=== PATIENT | female | born 1960 | race Caucasian/White ===

== ENCOUNTER 2017-12-21 10:31 | Observation (INO) | payer OTHER ==
[2017-12-21] MEDS ORDERED: OXYCODONE/APAP 5/325 TAB PO ONE (10:53)
[2017-12-21] MEDS ORDERED: DIAZEPAM 5 MG TAB PO ONE (10:53)
--- NOTE | 2017-12-21 10:59 | EDPHY ---
H & P Time Seen by Provider: 12/21/17 10:43 HPI/ROS: CHIEF COMPLAINT: Neck pain and hand weakness HISTORY OF PRESENT ILLNESS: Patient is had previous cervical spine surgeries including last 01/26/[address] Wei. she presents with 3 weeks of increasing neck pain radiating to her head. It spreads bilaterally to her shoulders right greater than left and more into her right arm. She presents today because the pain is not controlled by ibuprofen associated with bilateral weakened transportation maintenance specialist strength today. She contacted Glenn Sales from Neurosurgery who requested she come to the ER for evaluation. She says bilateral hand weakness is new. Not associated with incontinence or leg symptoms. REVIEW OF SYSTEMS: Eye: no change in vision ENT: no sore throat Cardiac: no chest pain or syncope Pulmonary: no cough or SOB Abdomen: no vomiting, diarrhea, abdominal pain Musculoskeletal: HPI Skin: no rash Neuro: HPI Constitutional: no fever : no urinary symptoms A comprehensive 10 point review of systems is otherwise negative aside from elements mentioned in the history of present illness. PAST MEDICAL HISTORY: Previous cervical fusions Social history: General Appearance: Alert and conversant, cooperative. Eyes: No scleral icterus. ENT, Mouth: Normal mucous membranes. Respiratory: Normal respiratory effort, breath sounds equal, lungs are clear to auscultation. Cardiovascular: Regular rate and rhythm. Gastrointestinal: Abdomen is soft and non tender. Neurological: Alert and face symmetric. Strength normal in both deltoids biceps triceps and wrist extensors. She has weak pinch strength with index and thumb as well as weak transportation maintenance specialist. These are bilateral. Toes downgoing bilaterally. Patellar reflexes 1 to 2+ and symmetric. Skin: Warm and dry, no rashes. Musculoskeletal: No peripheral edema. Psychiatric: Not agitated. Emergency Department course/MDM: Oral Percocet x1, oral Valium 5 mg for MRI. MRI of cervical and thoracic spine discussed and consented, ordered. 1216: MRI reviewed with Dr. Macias shows C4-5 disc herniation with cord compression as well as T1-2 and T7-8 disease. Discussed with Glenn Sales for Dr. Quiñones at this time; here to see patient 1231. 1248: admit V. Smoking Status: Never smoked Constitutional: Initial Vital Signs Temperature (C) 37 C 12/21/17 10:34 Heart Rate 80 12/21/17 10:34 Respiratory Rate 16 12/21/17 10:34 Blood Pressure 139/104 H 12/21/17 10:34 O2 Sat (%) 93 12/21/17 10:34 O2 Delivery Mode Room Air Allergies/Adverse Reactions: erythromycin base [Erythromycin Base] Allergy (Unknown, Verified 12/21/17 10:33) morphine Allergy (Unknown, Verified 12/21/17 10:33) Home Medications: Medication Instructions Recorded NK [No Known Home Meds] 12/21/17 Medical Decision Making - Diagnostics Imaging Results: Imaging Impressions Cervical Spine MRI 12/21/17 10:53 Impression: 1. C4-C5: Severe central canal stenosis with cord compression deformity secondary to moderate degenerative disk disease with dorsal disk/osteophyte complex. 2. T1-T2: Moderate to severe central canal stenosis secondary to left paramedian disk herniation, extrusion, resulting in cord compression and deformity. 3. Prior anterior cervical diskectomy and fusion from C5-C6 through C7-T1 without significant stenosis. 4.Please see above findings at specific disk levels. Findings and recommendations discussed with emergency department physician, Anam Liu MD at 1210 hours on December 21, 2017. Final report concurs with initial preliminary interpretation. Thoracic Spine MRI 12/21/17 10:53 Impression: 1. Multilevel moderate degenerative disk disease, worse at T1-T2, T10-T11, and T12-T12 with T1-T2 left paramedian disk herniation, T10-T11 right dorsal disk/ osteophyte complex, and T11-T12 central disk/osteophyte complex, resulting in moderate central canal stenosis with cord compression, as described above. 2. No cord edema or myelomalacia. 3. Please see above findings at specific levels. Findings and recommendations discussed with emergency department physician, Anam Liu MD at 1210 hours on December 21, 2017. Final report concurs with initial preliminary interpretation. Imaging: Discussed imaging studies w/ in home sales consultant Radiologist, I viewed and interpreted images myself Differential Diagnosis: Differential considered including but not limited to central disc herniation, spinal cord compression, peripheral neuropathy, myelopathic problem. - Data Points Medications Given: Discontinued Medications Diazepam (Valium) 5 mg PO EDNOW ONE Stop: 12/21/17 10:54 Last Admin: 12/21/17 11:00 Dose: 5 mg Oxycodone/Acetaminophen (Percocet 5/325) 1 tab PO EDNOW ONE Stop: 12/21/17 10:54 Last Admin: 12/21/17 10:59 Dose: 1 tab Departure - Departure Disposition: [facility] Clinical Impression: Cervical stenosis of spine Condition: Good
[2017-12-21] MEDS ORDERED: ONDANSETRON 4 MG/2 ML VIAL IVP PRN (13:00)
--- NOTE | 2017-12-21 13:21 | GHP ---
[f rep st] PREOP HISTORY AND PHYSICAL DATE OF ADMISSION: 12/21/2017 CHIEF COMPLAINT: Hand weakness. HISTORY OF PRESENT ILLNESS: Ms. Ridley is a 57-year-old female who has undergone 2 previous anterior cervical diskectomies and fusions of the left performed by Dr. Nielsen in January of 2013. For the last 3-4 weeks, she has been having neck pain, shoulder discomfort with right arm pain. Over the last 2 days , she has noticed this progressive loss of engineering manager strength with weakness. She has difficulty holding objects and she feels that her hands are both weak. She denies any upper extremity paresthesias, issues with fine motor tasks, ataxia, or bowel or bladder problems. She has been using Flexeril, with no improvement of her pain. PAST MEDICAL HISTORY: Possible reactive airway disease. CURRENT MEDICATIONS: albuterol inhaler. ALLERGIES: erythromycin, which causes nausea. FAMILY HISTORY: The patient has no family history of spine problems. SOCIAL HISTORY: Patient is and has 5 children. She denies smoking, drinking, or drug use. REVIEW OF SYSTEMS: Negative. PHYSICAL EXAM: GENERAL: The patient is a 57-year-old female lying in bed, in no apparent distress. HEAD, EYES, EARS, NOSE, AND THROAT: Negative for drainage. EXTREMITIES: [place], warm and dry. NEUROLOGICAL: The patient is awake, alert, and oriented x4. Pupils equal, round, reactive to light. Extraocular motions are intact. There is no evidence of facial droop. Tongue and uvula are midline. Spinal area accessory muscles are intact. Her motor strength is 5/5 with the exception of her bilateral engineering manager and intrinsics, which are 3-/5. Her sensation is grossly intact to light touch in her arms and legs. Deep tendon reflexes are 3+/4 in the bilateral biceps, triceps, brachioradialis, 4/4 in the bilateral patellar and 3+/4 in the bilateral Achilles. There is positive bilateral Ebenezer's with 2-3 beats of clonus bilaterally. DIAGNOSTIC STUDIES: An MRI of the thoracic spine from [facility] on 12/21/2017 shows preservation of the sagittal alignment. There is no evidence of significant stenosis. MRI of the cervical spine from [facility] on 12/21/2017 shows preservation of the sagittal alignment. There are postoperative changes from a previous C5 to T1 anterior cervical diskectomy and fusion. At C4-5, there is a broad-based disk herniation with ligamentum hypertrophy, which produces moderate to severe central canal stenosis. IMPRESSION: This is a 57-year-old female with a history of neck pain and progressive myelopathic symptoms that is likely related to her severe cervical stenosis at C4-5. She is neurologically stable. PLAN: All the above discussed in detail with the patient and her . This patient was seen and examined by Dr. Quiñones on the general care floor. At this point in time, Ms. Ridley will be admitted to the hospital. We will move forward with a plate removal and C4-5 anterior cervical diskectomy and arthrodesis in the next day or 2. She understands the risks of surgery include , but are not limited to, bleeding, infection, neurological injury, cerebrovascular injury, spinal fluid leak, and the risk of ongoing symptoms postoperatively. We will also have her work with Physical Therapy and Occupational Therapy preoperatively. STAFF ADDENDUM: I have seen and evaluated the patient and I agree with the above note. /[id number]/MODL MTDD
[2017-12-21] MEDS: oxyCODONE IR 5 MG TAB PO PRN ×2 (14:49→20:28)
[2017-12-21] MEDS: ACETAMINOPHEN 325 MG TAB PO PRN ×2 (15:47→20:27)
[2017-12-21] MEDS: METHOCARBAMOL 750 MG TAB PO PRN (20:27)
[2017-12-22] MEDS: oxyCODONE IR 5 MG TAB PO PRN ×2 (02:41→10:31)
[2017-12-22] MEDS: ACETAMINOPHEN 325 MG TAB PO PRN ×2 (10:31→17:44)
--- NOTE | 2017-12-22 11:39 | ASMTCMCOM ---
CM Note CM Note Notes: Chart reviewed and met with pt to review dc planning. She is for elective surgey tomorrow. She has good support at home.presurgical therapy clears patient for home independently at this time. No needs identified. CM available should needs arise. Date Signed: 12/22/2017 11:38 AM Electronically Signed By:Tiarra Zarco RN
--- NOTE | 2017-12-22 12:03 | NEUSURGPN ---
Assessment/Plan: 57 yr old with history of C5-T1 fusion, has progressive hand weakness and stenosis at C4-5 Plan: -Patient has continued bilateral hand weakness -Will plan for ACDF C4-[address] Nielsen tomorrow amGlenn will be by to consent the patient today -PT/OT -Discussed MRI findings with patient -Patient discussed with Dr Wei -Please call neurosurgery with any questions/concerns Subjective: Patient continues to have hand weakness Objective: AxO x3 PERRL 5/5 BUE aside from 3/5 bilateral integration project manager and intrinsics 5/5 BLE Neuro Check Frequency: per routine Urinary Catheter in Place: No - Physician Discussed Patient with : [facility] Physical Exam - Vitals, I&O, Labs I and O 12/21/17 12/22/17 12/23/17 05:59 05:59 05:59 Intake Total 500 500 Balance 500 500 Weight 65.771 kg Intake: Oral (ml) 500 500 IV Infused (ml) 0 Other: Number of Voids 2 Toilet 1 Vital Signs Temp Pulse Resp BP Pulse Ox 36.6 C 62 16 97/60 L 98 12/22/17 08:00 12/22/17 08:00 12/22/17 08:00 12/22/17 08:00 12/22/17 08:00 ICD10 Worksheet Patient Problems: Problems Problem Status Onset Cervical stenosis of spine Acute
[2017-12-22] MEDS ORDERED: ceFAZolin 2 GM/SWFI 2 GM/20 ML SYR IVP ONE (13:23)
[2017-12-22] MEDS ORDERED: GABAPENTIN 300 MG CAP PO ONE (13:23)
[2017-12-22] MEDS: ONDANSETRON DISINTEGRATING 4 MG TAB PO PRN (16:52)
[2017-12-22] MEDS: METHOCARBAMOL 750 MG TAB PO PRN (19:59)
[2017-12-23] MEDS ORDERED: LR 1,000 ML IV ONE (06:17)
[2017-12-23] MEDS ORDERED: ceFAZolin 2 GM/SWFI 20 ML SYR IVP ONE (06:30)
[2017-12-23] MEDS ORDERED: GABAPENTIN 300 MG CAP ONE (06:30)
[2017-12-23] MEDS: ONDANSETRON DISINTEGRATING 4 MG TAB PO PRN ×2 (06:40→20:17)
[2017-12-23] MEDS: oxyCODONE IR 5 MG TAB PO PRN ×3 (06:40→16:30)
[2017-12-23] MEDS: ACETAMINOPHEN 325 MG TAB PO PRN (06:41)
[2017-12-23] MEDS ORDERED: THROMBIN (BOVINE) 5,000 UNIT VIAL TP ONE (06:57)
[2017-12-23] MEDS ORDERED: BUPIVACAINE 0.25% 30 ML SDV ONE (06:57)
[2017-12-23] MEDS ORDERED: CHLORHEXIDINE GLUC HIBICLENS 118 ML BTL TP ONE (06:57)
[2017-12-23] MEDS ORDERED: BACITRACIN 50,000 UNITS/10 ML SYR IRR ONE ×2 (06:58→08:55)
[2017-12-23] MEDS ORDERED: OXYCODONE/APAP 5/325 TAB PO PRN (07:01)
[2017-12-23] MEDS ORDERED: ACETAMINOPHEN 500 MG TAB PO PRN (07:01)
[2017-12-23] MEDS ORDERED: ONDANSETRON 4 MG/2 ML VIAL IVP PRN (07:01)
[2017-12-23] MEDS ORDERED: NALOXONE HCL 0.4 MG/ML INJ IVP PRN (07:01)
[2017-12-23] MEDS ORDERED: LR 500 ML IV PRN (07:01)
[2017-12-23] MEDS ORDERED: ALBUTEROL 3 ML DEYVIAL IH PRN (07:01)
[2017-12-23] MEDS ORDERED: MIDAZOLAM 2 MG/2 ML VIAL IVP ONE (07:01)
--- NOTE | 2017-12-23 07:03 | PDANEPAE ---
ANE History of Present Illness Cervical Fusion ANE Past Medical History - Pulmonary History Hx Oxygen in Use at Home: No Hx Sleep Apnea: No Sleep Apnea Screening Result - Last Documented: Negative - Endocrine History Hx Diabetes: No - Chronic Pain History Chronic Pain: Yes ANE Review of Systems Review of Systems: ANE Patient History - Allergies Allergies/Adverse Reactions: erythromycin base [Erythromycin Base] Allergy (Unknown, Verified 12/21/17 10:33) morphine Allergy (Unknown, Verified 12/21/17 10:33) - Home Medications Home Medications: NK [No Known Home Meds] 12/21/17 [Last Taken Unknown] - NPO status NPO Since - Liquids (Date): 12/23/17 NPO Since - Liquids (Time): 00:00 NPO Since - Solids (Date): 12/22/17 NPO Since - Solids (Time): 20:00 - Smoking Hx Smoking Status: Never smoked ANE Labs/Vital Signs - Vital Signs Blood Pressure: 125/82 Heart Rate: 58 Respiratory Rate: 20 O2 Sat (%): 95 Height: 160.02 cm Weight: 65.771 kg ANE Physical Exam - Airway Neck exam: FROM Mallampati Score: Class 2 - Pulmonary Pulmonary: clear to auscultation - Cardiovascular Cardiovascular: regular rate and rhythym - ASA Status ASA Status: II ANE Anesthesia Plan Anesthesia Plan: general endotracheal anesthesia
[2017-12-23] MEDS ORDERED: MIDAZOLAM 2 MG/2 ML VIAL ONE (07:06)
[2017-12-23] MEDS ORDERED: PROPOFOL 200 MG/20 ML VIAL ONE (07:12)
[2017-12-23] MEDS ORDERED: fentaNYL 100 MCG/2 ML INJ ONE ×2 (07:12→09:31)
[2017-12-23] MEDS ORDERED: PROPOFOL/EMULSION 500 MG/50 ML BOTTLE IV ONE ×2 (07:31)
[2017-12-23] MEDS ORDERED: REMIFENTANIL HCL 1 MG VIAL ONE ×2 (07:37)
[2017-12-23] MEDS ORDERED: DEXAMETHASONE 4 MG/ML VIAL ONE ×2 (09:05)
[2017-12-23] MEDS ORDERED: ONDANSETRON 4 MG/2 ML VIAL ONE (09:05)
[2017-12-23] MEDS ORDERED: LACTULOSE 20 GM/30 ML UDCUP PO PRN (09:14)
[2017-12-23] MEDS ORDERED: BISACODYL 10 MG SUPP PR PRN (09:14)
[2017-12-23] MEDS ORDERED: diphenhydrAMINE 25 MG CAP PO PRN (09:14)
[2017-12-23] MEDS ORDERED: MAGNESIUM HYDROXIDE 30 ML UDCUP PO PRN (09:14)
[2017-12-23] MEDS ORDERED: NS W/ 20 KCl/L 1,000 ML IV SCH (09:15)
--- NOTE | 2017-12-23 09:19 | SOAPPROG ---
SOAP Progress Note Assessment/Plan: Assessment: 57 yo F sp C5-7 plate removal, C4/5 ACDF Plan: stable Raquel to fit hard collar MRI to evaluate for residual stenosis may dc home later today if MRI ok please call with neuro changes 12/23/17 09:18 Subjective: + neck pain, no arm pain. Objective: Vital Signs Temp Pulse Resp BP Pulse Ox 36.6 C 58 L 20 125/82 H 95 12/23/17 06:44 12/23/17 07:03 12/23/17 07:03 12/23/17 07:03 12/23/17 07:03 12/22/17 12/23/17 12/24/17 05:59 05:59 05:59 Intake Total 500 2200 Output Total 1 Balance 500 2199 somnolent PERRL, EOMI AYSHA x 4 3/5 clinic lead bilaterally + light touch C/D/I ICD10 Worksheet Patient Problems: Problems Problem Status Onset Cervical stenosis of spine Acute
[2017-12-23] MEDS ORDERED: HYDROmorphONE/DILAUDID 1 MG/ML INJ ONE (09:31)
[2017-12-23] MEDS: fentaNYL 100 MCG/2 ML INJ IVP PRN ×2 (09:33→09:41)
[2017-12-23] MEDS: HYDROmorphONE/DILAUDID 1 MG/ML INJ IVP PRN ×4 (09:34→15:03)
--- NOTE | 2017-12-23 09:41 | POSTANESTH ---
Post Anesthetic Evaluation Cardiovascular Status: Normal, Stable Respiratory Status: Normal, Stable Level of Consciousness/Mental Status: Alert and Oriented Pain Control: Adequate, Prn Tx Ordered Nausea/Vomiting Control: Adequate, Prn Tx Ordered Complications Possibly Related to Anesthesia: None Noted
[2017-12-23] MEDS: METHOCARBAMOL 750 MG TAB PO PRN (11:02)
[2017-12-23] MEDS: ceFAZolin 2 GM/SWFI 2 GM/20 ML SYR IVP SCH ×2 (13:18→21:55)
[2017-12-23] MEDS ORDERED: ceFAZolin 2 GM/DEXTROSE 100 ML IV SCH (14:00)
[2017-12-23] MEDS ORDERED: ceFAZolin 2 GM/SWFI 2 GM/20 ML SYR IVP SCH (14:00)
[2017-12-23] MEDS: POLYETHYLENE GLYCOL 3350 17 GM PKT PO SCH ×2 (16:21→21:55)
[2017-12-23 19:57] VITALS: RESP 16
[2017-12-23] MEDS: FAMOTIDINE 20 MG TAB PO SCH (20:16)
[2017-12-24] MEDS: ACETAMINOPHEN 325 MG TAB PO PRN ×2 (00:31→07:52)
[2017-12-24] MEDS: oxyCODONE IR 5 MG TAB PO PRN ×3 (00:32→12:05)
[2017-12-24 07:28] VITALS: PULSE 68; TEMP 98.2; O2SAT 95
[2017-12-24 07:46] VITALS: BP 107/55
[2017-12-24] MEDS: FAMOTIDINE 20 MG TAB PO SCH (07:47)
[2017-12-24] MEDS: POLYETHYLENE GLYCOL 3350 17 GM PKT PO SCH (07:53)
--- NOTE | 2017-12-24 08:05 | SOAPPROG ---
[facility] Progress Note Assessment/Plan: Assessment: 57 yo F POD #1 C5-7 plate removal, C4/5 ACDF Plan: stable dc home today hard collar at all times for 4 weeks MRI shows good decompression at C4/5 likely dc TONY today please call with neuro changes seen by Dr Wei 12/23/17 09:18 12/24/17 08:03 Subjective: + neck pain ,hands are stronger, no paresthesias. Objective: Vital Signs Temp Pulse Resp BP Pulse Ox 36.8 C 68 16 107/55 L 95 12/24/17 07:26 12/24/17 07:26 12/24/17 07:26 12/24/17 07:45 12/24/17 07:26 12/23/17 12/24/17 12/25/17 05:59 05:59 05:59 Intake Total 2200 1600 Output Total 1 1940 Balance 2199 -340 AAOx4, +FC PERRL, EOMI, no facial droop 5/5 except corporate secretary/intrinsics 4+/5 + light touch C/D/I ICD10 Worksheet Patient Problems: Problems Problem Status Onset Cervical stenosis of spine Acute
[2017-12-24] MEDS: METHOCARBAMOL 750 MG TAB PO PRN (12:05)
[2017-12-26] MEDS ORDERED: ENOXAPARIN 40 MG/0.4 ML SYR SC SCH (09:00)
--- NOTE | 2017-12-31 08:08 | GDS ---
[f rep st] DISCHARGE SUMMARY ADMISSION DIAGNOSIS: C4-5 stenosis with hand weakness. DISCHARGE DIAGNOSIS: Status post plate removal, C5-7 with C4-5 anterior cervical diskectomy and arth rodesis. HISTORY/PHYSICAL: Please see admission history and physical course. The patient is a 57-year-old fe male with a history of a previous C5 through 7 and C7-T1 anterior cervical diskectomy and arthrodesis . She presented with rapidly progressing hand weakness, ataxia, and hand numbness. She was found to have severe cervical stenosis at C4-5. She was taken to the operating room on 12/23/2017, where she underwent plate removal at C5 through 7, followed by C4-5 anterior cervical diskectomy and fusion. There were no intraoperative complications and she was admitted to the floor for observation. On the floor, she was tolerating a regular diet and her pain was controlled with p.o. pain medications. Po stoperative x-ray showed good position of the hardware. A postoperative MRI showed good decompressio n at the C4-5 level. She was discharged home in stable condition on 12/24/2017. Patient was dischar ld with cervical fusion instructions and recommended she return for neurosurgical followup appointme nt in 10-14 days. /[id number]/MODL
--- NOTE | 2018-01-07 12:13 | GOP ---
[f rep st] OPERATIVE REPORT DATE OF OPERATION: 12/23/2017 SURGEON: Ronald Nielsen MD LEATHER TOGGLER: Glenn Sales PA-C. ANESTHESIA: General endotracheal. PREOPERATIVE DIAGNOSIS: C4-5 disk herniation and cervical spinal stenosis with spinal cord compressi on. Progressive cervical spondylitic myelopathy. Retained hardware from prior C5-C7 instrumented ant erior cervical diskectomy and fusion. POSTOPERATIVE DIAGNOSIS: C4-5 disk herniation and cervical spinal stenosis with spinal cord compress ion. Progressive cervical spondylitic myelopathy. Retained hardware from prior C5-C7 instrumented an terior cervical diskectomy and fusion. PROCEDURE PERFORMED: Removal of anterior cervical instrumentation at C5 through C7 with exploration of spinal fusion. C4-5 complete anterior cervical diskectomy and arthrodesis with a structural PEEK i nterbody spacer and local autograft. Placement of a Synthes C4-5 anterior cervical plate with self-d rilling screws. Use of intraoperative microscopy and fluoroscopy. FINDINGS: ESTIMATED BLOOD LOSS: 50 mL. INDICATIONS: The patient is a 57-year-old woman with progressive myelopathic symptoms and C4-5 disk degeneration and collapse with a herniation and significant spinal stenosis with spinal cord compress ion. After a prior C5 through 7 anterior cervical diskectomy and fusion with instrumentation, she pr esents now for removal of plate and adjacent level anterior cervical diskectomy and arthrodesis with plating. DESCRIPTION OF PROCEDURE: After informed consent was obtained, the patient was taken to the operatin g room and placed in the supine position with the head in the halter retractor system after baseline neuromonitoring signals were obtained. The anterior cervical region was prepped and draped in a ster ile fashion. After fluoroscopic localization of the correct level, a horizontal linear incision was created at the level the C5 vertebral body. This was carried through the platysmal layer using the m onopolar electrocautery and carried in the avascular plane between the sternocleidomastoid and caroti d sheath laterally and the strap muscles, trachea, and esophagus medially down to the prevertebral fa scia, which was carefully incised with Metzenbaum scissors. There was quite a bit of scar tissue stephen t was carefully dissected out and the prior plate was identified and carefully removed in the standar d fashion. The C5 through C7 levels were inspected and explored and noted to be solid. The [place] d istraction pins were then inserted at the C4-5 level and a slight amount of distraction created acros s the interspace. A complete diskectomy was then performed with preparation of the endplates and rem oval of the posterior longitudinal ligament. There was a large disk herniation, causing significant canal compromise and spinal cord compression that was meticulously dissected out and removed. The os teophytes were carefully undercut and bilateral foraminotomies were performed. Following adequate de compression, the wound and disk space were copiously irrigated with antibiotic irrigation. Meticulous hemostasis was achieved. The remaining endplates were carefully prepared and an appropriately sized structural PEEK interbody spacer packed with local autograft in the center was placed in the intersp tia at the C4-5 level. Distraction was removed and an appropriately sized Synthes anterior cervical plate was then placed and secured with self-drilling screws. Following re-verification of good posit ion of endplate screws and interbody spacers using biplanar fluoroscopy, the locking mechanisms were engaged. A drain was placed. The subcutaneous and intramuscular tissues were re-infiltrated with lo mt anesthesia and the wound was closed in a layered fashion using interrupted Vicryl sutures followe d by Steri-Strips on the skin. COMPLICATIONS: None. DISPOSITION: The patient was extubated and transferred to the recovery room in stable condition. /[id number]/MODL
== END 2017-12-24 12:08 | disposition home or self-care (01) ==
LOC: INTOOBSV 12:48 → F3N 13:37
PROVIDERS: ADMIT Neurological Surgery; ATTEND Neurological Surgery
PROC: 8E0WXBZ Computer Assisted Procedure of Trunk Region (ICD-10-PCS; principal; 2017-12-21)
PROC: 0PP304Z Removal of Internal Fixation Device from Cervical Vertebra, Open Approach (ICD-10-PCS; principal; 2017-12-21)
PROC: 4A10X4G Monitoring of Central Nervous Electrical Activity, Intraoperative, External Approach (ICD-10-PCS; principal; 2017-12-21)
PROC: 0RG10A0 Fusion of Cervical Vertebral Joint with Interbody Fusion Device, Anterior Approach, Anterior Column, Open Approach (ICD-10-PCS; principal; 2017-12-21)
PROC: 0RT30ZZ Resection of Cervical Vertebral Disc, Open Approach (ICD-10-PCS; principal; 2017-12-21)
DX: M48.02 Spinal stenosis, cervical region (principal); M50.221 Other cervical disc displacement at C4-C5 level; M47.12 Other spondylosis with myelopathy, cervical region; M51.24 Other intervertebral disc displacement, thoracic region; M51.35 Other intervertebral disc degeneration, thoracolumbar region; M48.04 Spinal stenosis, thoracic region; Z47.2 Encounter for removal of internal fixation device
CPT/HCPCS: 20985; 22551; 22855; 72040; 72141; 72146; 76001; 97161; 97164; 97166; 97535; 99285; G0378; C1713; J0171; J0690; J1100; J1170; J2250; J2405; J2704; J3010